=== PATIENT | female | born 1975 | race Caucasian/White ===

== ENCOUNTER 2018-10-11 00:16 | Emergency (ER) | payer OTHER, SELFPAY ==
[2018-10-11 00:18] VITALS: BP 125/85; PULSE 80; RESP 15; TEMP 36.5; O2SAT 100; BMI 46.6
--- NOTE | 2018-10-11 00:30 | EKG12_ITS ---
Test Reason : Blood Pressure : / mmHG Vent. Rate : 080 BPM Atrial Rate : 080 BPM P-R Int : 144 ms QRS Dur : 068 ms QT Int : 410 ms P-R-T Axes : 016 029 035 degrees QTc Int : 472 ms Normal sinus rhythm Low voltage QRS Borderline ECG Confirmed by ROBERTH MALHOTRA MD ([id number]), editorial manager ARTEM BADILLO ([id number]) on 10/11/2018 2:41:31 PM Referred By: DC Confirmed By:ROBERTH MALHOTRA MD
--- NOTE | 2018-10-11 00:35 | RAD_ITS ---
STUDY: X-RAY CHEST REASON FOR EXAM: Female, 43 years old. Chest pain. TECHNIQUE: AP portable chest. COMPARISON: None. FINDINGS: The lungs are clear and expanded. There is no demonstrated pleural abnormality. Normal size heart. Normal mediastinum and romulo. Normal visualized pulmonary arteries. Normal visualized aortic arch and descending thoracic aorta. Normal visualized thoracic spine. Normal visualized ribs, clavicles, and shoulders. There is no demonstrated abnormality of the visualized soft tissue structures of the upper abdomen. RAD/Chest 1 View (Portable) IMPRESSION: Normal x-ray examination of the chest. Electronically Signed: Lloyd Amaya MD at 1:12 EST , Service support ,
[2018-10-11] MEDS: Mag Hydrox/Al Hydrox/Simeth 30 ML UDC PO (00:36)
[2018-10-11 00:44] LABS: Absolute Lymphocyte Count 4.49 X10^3/ul (0.83-4.51); Absolute Neutrophil Count 6.3 X10^3/uL (2.0-7.7); Basophil# 0.03 X10^3/uL; Basophil% 0.3 % (0-1); Eosinophil# 0.15 X10^3/uL; Eosinophils% 1.3 % (0-5); Hematocrit 43.7 % (37-47); Hemoglobin 13.8 g/dl (12.0-15.0); Lymphocyte # 4.49 X10^3/ul (4.0); Lymphocyte % 38.2 % (19-41); Mean Corp Hgb Conc 31.6 g/gl (32-36); Mean Corpuscular Hgb 29.1 pg (27.0-32.0); Mean Platelet Vol. 8.9 fl (6.2-12.0); Monocyte# 0.73 X10^3/uL; Monocyte% 6.2 % (0-10); Neutrophil # 6.27 X10^3/uL (2.7-7.7); Neutrophil % 53.3 % (47-70); Platelet Count 344 K/mm3 (150-450); RBC Distribution Width CV 13.4 % (11.6-14.6); RBC Distribution Width SD 44.6 fl (35.1-43.9); Red Blood Count 4.75 M/mm3 (4.2-5.4); White Blood Count 11.8 K/mm3 (4.4-11.0)
[2018-10-11 00:45] LABS: Differential Indicated SCAN CRITERIA MET; POSITIVE COUNT NO; POSITIVE DIFFERENTIAL NO; POSITIVE MORPHOLOGY YES
[2018-10-11 00:56] LABS: ALB/GLOB Ratio 0.8 RATIO (0.9-2.4); AST(SGOT) 14 U/L (15-37); Alanine Aminotransfer ALT/SGPT 24 U/L (13-56); Albumin, Serum 3.3 g/dL (3.2-5.0); Alkaline Phosphatase 79 U/L (45-117); Anion Gap 7 (5-15); BUN 11 mg/dL (7-18); BUN/Creat Ratio 14.8 RATIO (10-20); Calcium,Total 8.1 mg/dL (8.5-10.1); Chloride 108 mmol/L (98-107); Creatinine, Serum 0.74 mg/dL (0.55-1.02); EST Glomerular Filtration Rate 91 mL/min (>60); Est Glom Filt Rate - Afr Amer 111 mL/min (>60); Estimated Creatinine Clearance 86.39 ml/min; Glucose 118 mg/dL (74-106); Lipase 102 U/L (73-393); Potassium 3.7 mmol/L (3.5-5.1); Protein, Total 7.3 g/dL (6.4-8.2); Sodium Level 138 mmol/L (136-145)
[2018-10-11 01:21] VITALS: BP 118/89; PULSE 68; RESP 20; O2SAT 96
--- NOTE | 2018-10-11 01:50 | ED.VISSUMM ---
- ER Visit Summary Date of Service: 10/11/18 Chief Complaint: Chest pain History of Present Illness: The patient is a 43 F with what she describes as chest pain. The pain is in her epigastric region. It feels like pressure and acid reflux. It has been going on for 3 days but got worse yesterday evening. The pain radiated into her chest and she felt slightly short of breath. She had worsening reflux symptoms after eating tomato. She tried NyQuil but it did not seem to help. She has a history of acid reflux. Denies any history of diabetes, hypertension, hyperlipidemia, heart disease, asthma, COPD, PE, or aortic disease. Denies any history of other gastric or esophageal pathology. Denies any history of liver disease or pancreatitis. She did have biliary colic in the past and had a cholecystectomy. Physical Examination: Afebrile and vital signs unremarkable. Alert and oriented. No acute distress. Speaking in full sentences without difficulty. Breathing and moving comfortably. Heart regular rate and rhythm. Lungs clear in all shen. Abdomen soft and nontender. No guarding or rebound. Skin normal in color without jaundice or pallor. Test Results: EKG shows sinus rhythm at a rate of 80. No sign of ischemia or infarction pattern. White count 11.8. CMP and lipase unremarkable. Troponin normal. Chest x-ray normal. Emergency Department Course and Treatment: Patient treated with a GI cocktail. She had resolution of her symptoms. I suspect some of this may be related to acid reflux, gastritis, or possibly ulcer. I also considered cardiac, vascular, and respiratory pathology. Her workup as above was unremarkable. I have low suspicion for anything further. Patient will be discharged on antacids. Return for any new or worsening issues. Follow-up with primary care. Treatment Plan: As above Disposition: Discharge Impression: 1. Epigastric pain This note was generated with [employer] software. It may contain incorrect words, spelling, and punctuation that were not noted in review of the chart prior to signing ED Disposition - Plan for ED Patient: Referrals: Care Physician,No Primary [Primary Care Provider] -
--- NOTE | 2018-10-11 01:52 | ED.DEP ---
ED Disposition - Plan for ED Patient: Instructions: ED Chest Pain Atypical Unkn Cause Prescriptions: Famotidine [Pepcid] 20 mg PO BID #28 tab Referrals: Fay Watson [NON-STAFF] - Blue Kwon DO [NON CLINICAL AFFILIATE] -
[2018-10-11 02:12] VITALS: BP 116/87; PULSE 77; RESP 19; O2SAT 97
== END 2018-10-11 02:14 | disposition home or self-care (01) ==
LOC: ED 00:45
PROVIDERS: Emergency Provider Emergency Medicine
DX: R10.13 Epigastric pain (principal); K21.9 Gastro-esophageal reflux disease without esophagitis; R05 Cough; Z72.0 Tobacco use; Z90.49 Acquired absence of other specified parts of digestive tract
CPT/HCPCS: 71045; 80053; 83690; 84484; 85025; 93005; 99285; A4216